=== PATIENT | male | born 1975 | race Caucasian/White ===

== ENCOUNTER 2016-05-23 09:48 | Inpatient (IN) | payer OTHER ==
[~2016-05-23] VITALS: Ht 177.8 cm; Wt 138.1 kg
[2016-05-23] VITALS (20 sets, daily range): BP systolic 124–196; BP diastolic 71–102; PULSE 71–106; RESP 9–23; O2SAT 93–95
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
[2016-05-23] MEDS ORDERED: Heparin 1,000 Unit/mL 10 mL Inj ONE (10:01)
[2016-05-23] MEDS ORDERED: Atropine 1 mg/10 mL (Code) Syringe ONE (10:01)
[2016-05-23] MEDS ORDERED: Phenylephrine/NS-PF 100 mCg/mL 5 mL Syringe IVPUSH ONE (10:01)
[2016-05-23] MEDS ORDERED: Heparin 1,000 Units/500 mL NS Premix IV ONE (10:01)
[2016-05-23] MEDS ORDERED: Heparin 5,000 Units/500 mL NS Premix IV ONE (10:01)
[2016-05-23] MEDS ORDERED: Nitroglycerin 50,000 mcg/250 mL D5W Premix IV ONE ×2 (10:02→10:06)
[2016-05-23] MEDS ORDERED: Nitroglycerin 2% 1 Gm Ointment TOPICAL ONE (10:06)
[2016-05-23] MEDS ORDERED: MeTOProlol 1 mg/mL 5 mL Inj ONE (10:06)
[2016-05-23] MEDS ORDERED: Ondansetron 2 mg/mL 2 mL Inj ONE (10:08)
[2016-05-23 10:21] LABS: BASOPHILS % (AUTO) 0.3 % (0-3); EOSINOPHILS % (AUTO) 2.7 % (0-5); MONOCYTES % (AUTO) 8.4 % (4-12); Mean Corpuscular Hemoglobin 31.7 pg (27.0-35.0); Mean Corpuscular Volume 91.1 fL (81-100); NEUTROPHILS % (AUTO) 55.8 % (40-74); Platelet Count 284 bil/L (150-400)
--- NOTE | 2016-05-23 10:26 | DRSVH ---
PROCEDURE: X-RAY CHEST ONE VIEW, PORTABLE ([id number]) INDICATIONS: chest pain TECHNIQUE: One view of the chest was acquired. COMPARISON: [facility], , CHEST 2 VIEW, 05/12/2015, 13:54. FINDINGS: Surgical changes and devices: None. Lungs and pleura: No pleural effusions or pneumothorax. Lungs are clear. Mediastinum: Mediastinal contours appear normal. Heart size is normal. Bones and chest wall: No suspicious bony lesions. Overlying soft tissues appear unremarkable. IMPRESSION: No acute cardiopulmonary disease. Dictated by: Silvia Muse M.D. on 05/23/2016 at 10:23 Approved by: Silvia Muse M.D. on 05/23/2016 at 10:24
[2016-05-23] MEDS ORDERED: fentaNYL-PF 50 mCg/mL 2 mL Inj ONE (10:30)
[2016-05-23 10:45] LABS: Magnesium 1.7 mg/dL (1.6-2.6)
[2016-05-23] MEDS ORDERED: 0.9% Sodium Chloride 500 ML ONE (10:47)
[2016-05-23 10:48] LABS: TROPONIN T 0.089 ug/L (0.0-0.011)
[2016-05-23] MEDS ORDERED: Labetalol 5 mg/mL 20 mL Inj ONE (11:35)
[2016-05-23] MEDS ORDERED: 0.9% Sodium Chloride 1,000 ML IV ONE (12:30)
[2016-05-23] MEDS ORDERED: Ondansetron 2 mg/mL 2 mL Inj IVPUSH PRN (12:30)
[2016-05-23] MEDS ORDERED: Sodium Chloride LOK Flush 10 mL Syringe IVFLUSH PRN (12:30)
[2016-05-23] MEDS ORDERED: Atropine 1 mg/10 mL (Code) Syringe IVPUSH PRN (12:30)
[2016-05-23] MEDS ORDERED: 0.9% Sodium Chloride 250 ML BOLUS IV PRN (12:30)
--- NOTE | 2016-05-23 13:30 | DRSVH ---
PROCEDURE: X-RAY CHEST ONE VIEW, PORTABLE ([id number]) INDICATIONS: POST CARDIAC PROCEDURE ORDERS TECHNIQUE: One view of the chest was acquired. COMPARISON: [facility], FLAVIO, CHEST 2 VIEW, 05/12/2015, 13:54. [facility], CR, XR SHAUN ST 1VW (PORTABLE), 05/23/2016, 9:53. FINDINGS: Surgical changes and devices: None. Lungs and pleura: No pleural effusions or pneumothorax. Lungs are clear. Mediastinum: Mediastinal contours appear normal. Heart size is normal. Bones and chest wall: No suspicious bony lesions. Overlying soft tissues appear unremarkable. IMPRESSION: No acute cardiopulmonary disease. Dictated by: Silvia Muse M.D. on 05/23/2016 at 13:28 Approved by: Silvia Muse M.D. on 05/23/2016 at 13:28
--- NOTE | 2016-05-23 14:13 | CS94 ---
[address] [address] DIAGNOSTIC CARDIAC CATHETERIZATION PATIENT: LIZZY CRUZ : 1975 MR#: [id number] ADMIT: 05/23/2016 JOB ID: [id number] SERVICE DATE: 05/23/2016 PROCEDURE NOTE--CARDIAC CATHETERIZATION LABORATORY: DATE OF PROCEDURE: Monday, May 23, 2016. AIR BATTLE MANAGER: Seb Urbina MD. PROCEDURES: 1. Coronary angiogram--emergent. 2. Left heart catheterization (LHC)--pressure measurements; and LVG (left ventriculogram). 3. PERCUTANEOUS CORONARY INTERVENTION (PCI)--BERNARDO (drug-eluting stent) of proximal RCA--Xience 4.00 x15 mm. CLINICAL DETAILS: This 41-year-old man presents to the cardiac catheterization laboratory emergently after transferred from [facility] emergency department where he presented with severe retrosternal chest discomfort that was intermittent for the last 16 hours. He has no prior history of heart disease; and coronary risk factors include untreated hypertension and cigarette smoking. He developed severe retrosternal chest discomfort for 6 hours yesterday intermittently. In the emergency department today, there was inferior ST elevation; but on presentation, he has no chest pain and ST changes have mostly cleared, suggestive of a spontaneous reperfusion of the right coronary artery. He is otherwise clinically stable. PROCEDURAL DETAILS: I evaluated him emergently in the emergency department and discussed the findings, impressions and management considerations with him, including the recommendation for emergent catheterization for definitive diagnosis and to guide treatment options including medical therapy, anticipated PCI or bypass surgery if needed. We discussed the procedure including possible risks and complications. We discussed bleeding, infection, and blood clots; as well as injury to nerve, artery, vein, or kidney; and also arrhythmia, drug reaction; or others. We discussed as needed including surgery, pacemaker, transfusion. We discussed more serious complications that are possible including stroke, heart attack, , and emergency surgery including transfer for coronary bypass surgery. After discussion and questions, he signed informed consent to proceed. He had been treated with ASA 324 mg; as well as heparin IV bolus and heparin IV infusion. He had received Plavix 600 mg p.o. at the outside hospital. He was brought to the catheterization laboratory where his prepped sterilely and draped. CORONARY ANGIOGRAM: First arterial access was obtained without difficulty in the right common femoral artery using fluoroscopic localization over the femoral head and modified Seldinger technique to insert a 10 cm, 6-Libyan side-arm sheath. Catheters were advanced and exchanged over a long 0.035 inch J-tipped guidewire. For coronary angiography,,the left coronary artery was engaged with a 6-Libyan JL-4 diagnostic catheter. Then, the right coronary artery was engaged with a 6-Libyan JR-4 guide catheter. LHC: At the end of the procedure, a 6-Libyan pigtail catheter was advanced across the aortic valve into the left ventricle. Pressures were measured. Left ventriculogram was obtained in the 30-degree PATEL projection using 36 cc of contrast injected at 12 cc/second. PCI of proximal RCA: The initial diagnostic angiogram was reviewed. Decision is made to proceed with emergent PCI to revascularize the culprit subtotal 99% focal proximal RCA lesion (KATERYNA-3 flow). Procedural anticoagulation was obtained with IV bolus heparin to achieve therapeutic ACT. Aliquots of NTG IC were used as needed for intervention. The 6-Libyan JR4 catheter already in place was used for the intervention. PREDILATATION: The lesion was crossed without difficulty with a BMW wire--0.014 inches x 190 cm--which was placed distally in the PDA. The lesion was pre-dilated with a Trek balloon--3.0 x 12 mm--inflated twice to maximum 12 atmospheres. The lesion was improved. There was no significant reperfusion arrhythmia. STENT: Next, the lesion was treated with a Xience Alpine BERNARDO--4.0 x 15 mm--deployed at 22 atmospheres. POSTDILATATION: The stent in the very large RCA was then post dilated with a noncompliant Trek NC balloon--4.5 x 12 mm--inflated within the stented segment to 12 atmospheres. Completion angiogram showed an excellent angiographic result with no residual lesion; KATERYNA-3 flow; and no angiographic complication evident. Procedure without difficulty. Patient tolerated procedure well. No complications. A side-arm sheath angiogram shows adequate access in the right common femoral artery for closure device; and arterial hemostasis was obtained without difficulty using a Perclose suture. The patient was transferred chest-pain free and in stable condition from the catheterization laboratory to the CCU for ongoing care. I discussed the procedure findings and ongoing management considerations with the patient; and with multiple family members who arrived. FINDINGS: 1. LMCA: The left main coronary artery is short and intact without angiographic obstructive disease. 2. LAD: The left anterior descending coronary artery is a moderate-size vessel that tapers prior to the apex; and its lesser distribution likely reflects the large distribution of the RCA. The LAD has three, moderate-sized diagonal branches and there is no angiographic obstructive disease. 3. LCX: The left circumflex coronary artery is a large artery with no angiographic obstructive disease. Its distribution includes a very high lateral branch (nearly ramus) and a moderate to large size LPL branch distally. 4. RCA: Dominant. The right coronary artery is a very large (over 4 mm) vessel. Its distribution includes a very large PDA and a very large RPLB, which reached the apex. The apparent culprit lesion of his clinical presentation is a proximal focal subtotal 99% lesion at the takeoff of a small 1st RV branch. There is KATERYNA-3 flow initially. 5. LHC: LVED 19; and no systolic gradient on pullback across the aortic valve. 6. LVG: The left ventricle is slightly dilated with low normal global LV systolic function, including estimated ejection fraction of 50% to 55%. There is inferior hypokinesis and apical akinesis consistent with the distribution of his very large RCA. No mitral regurgitation. CONCLUSIONS: 1. PCI--proximal RCA (Xience Alpine BERNARDO 4.0 x 15 mm; post dilated to 4.5 mm). 2. ACS--acute inferior SD (STEMI); but with clinical spontaneous reperfusion including no chest pain and resolved ECG on presentation. 3. CAD (coronary artery disease)--single-vessel CAD of proximal RCA. RECOMMENDATIONS: 1. ECASA--indefinitely. 2. Plavix--Plan one year if well tolerated, including with ongoing Cardiology followup. I discussed with the patient the critical importance of mandatory dual-antiplatelet therapy; and not to stop Plavix for any reason without immediate Cardiology consultation. 3. Echo. 4. OMT--guideline directed optimal medical therapy for CAD and for CAD risk factors including aspirin, Plavix, statin, beta-nicky, consideration of MIRIAM inhibitor, and control of hypertension. We discussed especially the importance of cigarette smoking cessation. 5. Accelerated hypertension was also a likely contributor to his clinical presentation, with initial blood pressure 205/113.
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
--- NOTE | 2016-05-23 18:20 | NUR ---
Admit Patient was admitted to floor at 1200 from Icu Rn s/p heart cath and stenting. Right groin with small amount of oozing at site and air conditioning unit tester here to look at stated that that was normal oozing. I believe there was a small hematoma forming at site, which was confirmed by Avionics Mechanic for second opinion. Pressure was held at the site and the hematoma lessened. Site is soft now, but there is bruising. Right DP pulse palpable. Dressing was changed per MD and once again a small amount of oozing at site. Patient is off of bedrest now and has stood to void with SBA. Tolerated well. Tele has been SR, 80s. Denies pain. BP up slightly labile, but runs high. Lopressor was ordered and started. Patient was given 80 mg lipitor as ordered. Patient is voiding and taking in fluids well. NS at 100ml/hr to run until 2200.
--- NOTE | 2016-05-23 18:47 | NUR ---
Sats Patient has apnea spells while sleeping and his sats drop to the upper 80s. Patient was informed of this as he will want to follow up on this. 2L 02 was applied to keep sats >92% while sleeping. Lungs sound clear, but decreased in the bases. 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
--- NOTE | 2016-05-23 20:57 | NUR ---
Respiratory/Groin site/status: Pt has noticeable sleep apnea when sleeping with irregular chest movement and spo2 dropping to 89-90% with 3L/M per cannula on. Periods of breaths with chest movement but no air movement heard followed by gasps accompanied with snoring. Right groin site tender to palpation 5cm x 5cm hematoma noted with no changed since [facility] as reported during shift report. Pt has been up out of walking in room and to bathroom. [address] Urbina to transfer to PCU status with tele.
[2016-05-24 00:31] VITALS: BP 156/80; PULSE 78; RESP 18; O2SAT 95
--- NOTE | 2016-05-24 00:47 | NUR ---
transfer of care assumed care of patient - verbal report from chevy pereira. patient denies chest pain. tele SR. right groin site: gauze saturated with old drainage. no additional drainage bruise visible to periphery of dressing. no tenderness with palpation. bounding right foot pulses. sba out of bed, patient voided 800 marcial urine per urinal. reviewed plan of care. no questions at this time.
[2016-05-24 03:51] LABS: Mean Corpuscular Hemoglobin 31.4 pg (27.0-35.0); Mean Corpuscular Volume 93.7 fL (81-100)
[2016-05-24 04:17] VITALS: BP 171/97; PULSE 88; RESP 20; O2SAT 98
[2016-05-24 08:51] VITALS: BP 168/90; PULSE 97; RESP 18; O2SAT 94
[2016-05-24 09:23] VITALS: PULSE 83
--- NOTE | 2016-05-24 11:34 | DRSVH ---
[facility] [address] [place] [place] [address] Echocardiogram Report Name: LIZZY RCUZ Study Date: 05/24/2016 Height: 70 in Hospital Exam Location: [facility] Weight: 30 4 lb Gender: Other BSA: 2.5 m2 : 1975 Age: 41 yrs BP: 171/97 mmHg Reason For Study: STEMI Ordering Physician: Seb Urbina Performed By: Darlene Knapp Referring Physician: Dr. Lv Soria Interpretation Summary 1) Mild concentric left ventricular hypertrophy with normal size and normal systolic function (EF 55-60%). 2) Distal inferolateral wall hypokinesis. 3) Normal right ventricular size with low normal function. 4) No significant valvular abnormalities. 5) Hypertension present during the study (BP 171/97). 6) No prior Echo available for comparison. Procedure: A two-dimensional transthoracic echocardiogram with color flow and Doppler was performed. The study quality was technically adequate. A contrast injection of Definity was performed to improve assessment of LV function. There is no prior echocardiogram noted for this patient. No complications noted with Definity. The patient was in normal sinus rhythm during the exam. Left Ventricle: The left ventricle is mildly dilated. There is mild concentric left ventricular hypertrophy. The ejection fraction is estimated to be 55-60%. Left ventricular systolic function is normal. Distal inferolateral wall hypokinesis. Assessment of diastolic parameters indicates a relaxation abnormality of the left ventricle, consistent with normal filling pressures. Right Ventricle: The right ventricle is normal size. Right ventricular systolic function is at the lower limits of normal. Atria: Both atria are normal in size. There is no Doppler evidence for an interatrial shunt. Mitral Valve: The mitral valve is normal in structure and function. There is trace mitral regurgitation. Aortic Valve: The aortic valve is normal in structure and function. There is no aortic valve stenosis. No aortic regurgitation is present. Tricuspid Valve: The tricuspid valve is not well visualized, but is grossly normal. Pulmonary artery pressures cannot be estimated because of the lack of a measurable TR jet velocity. Pulmonic Valve: The pulmonic valve is not well seen, but is grossly normal. Great Vessels: The aortic root is normal size. The ascending aorta is at the upper limits of normal in size. The aortic arch is normal in size. The IVC is of normal diameter and collapses greater than 50% with a sniff. This suggests a low right atrial pressure of 3 mm Hg. Pericardium/ Pleura There is no pericardial effusion. MMode/2D Measurements & Calculations LVIDd: 6.0 cm RA long axis LVOT diam: 2.4 cm LVIDs: 4.0 cm LA A2 area: 23.3 cm AoV Opening FS: 33.6 % LA A4 area: 21.5 cm RA area EPSS: 0.91 cm LA length (vol) Ao root diam IVSd: 1.2 cm : 23.3 cm LVPWd: 1.1 cm LA vol: 65.7 ml RA vol Aortic Jxn: 3.3 cm LA vol index : 74.4 ml asc Aorta Diam RA : 29.8 mm2 Ao Arch Diam (Prox IVC diam: 1.6 cm Trans): 2.9 cm LV smiley. diameter/BSA LV sys. diameter/BSA (cm/m^2): 2.4 (cm/m^2): 1.6 Doppler Measurements & Calculations Ao V2 max MV E max vick MV E/A: 0.83 PA V2 max : 181.5 cm/sec : 52.5 cm/sec Med Peak E' Vick : 108.6 cm/sec Ao max PG MV A max vick PA mean PG : 13.2 mmHg : 63.6 cm/sec E/E' med: 8.0 Ao mean PG MV P1/2t: 49.4 msec Pulm A Revs Dur PA Accel Time : 0.09 sec LVOT Max Vick MV A dur: 0.10 sec : 124.0 cm/sec RODGER(I,D): 3.6 cm sev ratio MV dec time MV P1/2t max vick Ao V2 mean LV V1 max PG : 0.17 sec : 120.9 cm/sec MVA(P1/2t): 4.5 cm2 Ao V2 VTI: 29.5 cm LV V1 VTI RODGER(V,D): 3.0 cm2 : 23.7 cm PA V2 mean RODGER indexed to BSA Pulm A Revs Dur - MV A : 62.1 cm/sec (cm^2/m^2): 1.4 Dur: 0.04 msec Reading Physician:[id number] AM
[2016-05-24 12:19] VITALS: BP 132/82; PULSE 75; RESP 17; O2SAT 92
--- NOTE | 2016-05-24 16:07 | NUR ---
Social Work Note: Screen Note Data& Assessment: EMR reviewed. Nacho Head is a 41 year old male admitted on 05/23/2016 for STEMI. Pt has [employer] insurance coverage and sees Lv Soria MD for primary care. Pt lives in [place] and is independent at baseline. Pt is ambulating the halls independently with family. SW met with pt and pt family at bedside to check in and assess for any unmet needs. Pt provided with DPOA/Advance Directive paperwork to review and complete when possible. Pt denies any other needs at this time. SW to continue to follow. Plan: Anticipated discharge home via POV when medically ready. Pt denies any other needs at this time. SW to continue to follow. YVROSE Bowles
--- NOTE | 2016-05-24 17:22 | PCM.DIMED ---
Discharge Instructions Date of Service May 24, 2016 Dates of Hospitalization May 23, 2016 at 12:28 Discharge Diagnosis Discharge Diagnosis ACS CAD HTN Diet Heart Healthy Activity Limited until seen by PCP Call your provider Chest pain Patient Instructions Follow-up with PCP in: 1 week [facility] Follow-up in: 1 week Seb Urbina MD May 24, 2016 17:22
[2016-05-24] MEDS ORDERED: ASPI81TA3 PO (17:27)
[2016-05-24] MEDS ORDERED: NICO1PAT5 TOPICAL (17:27)
[2016-05-24] MEDS ORDERED: CLOP75TA28 PO (17:27)
[2016-05-24] MEDS ORDERED: NITR0.4T SL (17:27)
[2016-05-24] MEDS ORDERED: ATOR40TA69 PO (17:27)
[2016-05-24] MEDS ORDERED: LISI-571 PO (17:27)
[2016-05-24] MEDS ORDERED: METO25TA6 PO (17:27)
--- NOTE | 2016-05-24 18:08 | DRSVH ---
PROCEDURE: US DUPLEX DOPPLER UNILATERAL LEG ARTERIES, RIGHT INDICATIONS: R GROIN SITE R/O PSEUDOANEURISM TECHNIQUE: Color and pulse Doppler interrogation was performed of the right lower extremity arterial system, wit h image documentation. COMPARISON: None. FINDINGS: No sonographic evidence for pseudoaneurysm. There is a 3.7 x 1.7 x 3.1 cm hypo-echoic flui d collection within the right inguinal region. There is no internal vascularity. IMPRESSION: 1. No findings to suggest pseudoaneurysm. 2. Probable small retroperitoneal hematoma. Approved by: Kina Barrientos M.D. on 05/24/2016 at 18:07
[2016-05-24 18:25] VITALS: BP 141/107; PULSE 97; RESP 19; O2SAT 94
--- NOTE | 2016-05-24 18:44 | NUR ---
Discharge Pt. discharged to home in stable condition at 1840. Walking w/ steady gait. IVs and tele dc'd prior to discharge. All belongings, scripts and instructions with pt. Pt. educated on new medications. No questions or concerns at this time.
--- NOTE | 2016-05-24 18:55 | DIS ---
[address] [address] DISCHARGE SUMMARY PATIENT: LIZZY CRUZ : 1975 MR#: [id number] ADMIT: 05/23/2016 JOB ID: [id number] DIS: DISCHARGE SUMMARY--FOLLOW-UP INPATIENT CARDIOLOGY VISIT: DATE OF ADMISSION: Monday, May 23, 2016. DATE OF DISCHARGE: Tuesday, May 24, 2016. HOSPITAL COURSE AND DISCHARGE SUMMARY: This 41-year-old man presented to the Emergency Department(ED) by EMS 36 hours ago after the onset of severe retrosternal chest discomfort that had been present for 12 hours; but intermittent. On initial presentation to an outside ED he had chest discomfort and the EKG showed acute inferior ST elevation NH with confirmatory reciprocal ST depression. However, on transfer to this hospital and at the time of presentation here, he had apparent clinical spontaneous reperfusion. He was chest pain free and ECG changes had mostly resolved. He was also noted to have hypertensive emergency with systolic blood pressure above 200 on presentation. He was taken emergently to the Cardiac Catheterization Laboratory where he was found to have single-vessel coronary disease with a subtotal 99% focal proximal RCA lesion--initially with KATERYNA-3 flow. He was treated with percutaneous coronary intervention with a Xience Alpine stent--4.0 x 15 mm--(postdilated to 4.5 mm). Thereafter, he was clinically stable without recurrent chest pain. His ECG changes resolved nearly completely; and subsequent ECG is not outside ahsan limits. There are no diagnostic Q waves. Total CK was not above normal limits. Echocardiogram showed some inferior hypokinesis consistent with his acute RCA lesion. In the hospital, he recovered well. There was some ecchymosis at the site of cath access at the right groin. A Doppler ultrasound study showed a 3 cm hematoma but no pseudoaneurysm. He ambulated over a mile around the the [place]; and had no symptoms; and felt well; and strongly wanted to be discharged home. Prior to discharge, I talked with him extensively on several occasions to discuss the findings, impressions, and management considerations including his underlying coronary disease. We discussed medications to include aspirin; as well as the critical importance of mandatory Plavix planned for one year if well tolerated; and not to stop for any reason without immediate Cardiology consultation. We discussed other medicines to include metoprolol, lisinopril, statin. We discussed the importance of controlling his severe hypertension which persisted intermittently. We also discussed his obesity (300 pounds) and the evident sleep apnea that was witnessed at night including apnea, O2 saturations in the 80s, and snoring and snorting. We discussed post hospitalization care including to call for PCP appointment on discharge, to be seen within 3-7 days; and to be seen in Cardiology Clinic within 7-10 days. We discussed activity prescription including to return to normal activities with moderate, progressive, step-koroma, symptom limited activities. I signed a form from his work indicating return to work would be reassessed at the time of his follow-up office visit. I anticipate it is likely he will return to normal activities. We discussed and answered questions for him and his Family. DISPOSITION: Home. FOLLOW-UP: PCP 4-7 days. Cardiology Clinic: 7-10 days. Consider Cardiac Rehab Program, discussed. Smoking Cessation, discussed. MEDICATIONS: 1. ECASA 81 mg p.o. daily. 2. Plavix 75 mg p.o. daily--plan one year with ongoing Cardiology follow-up. 3. Metoprolol 25 mg p.o. b.i.d.--anticipate up-titration for blood pressure control. 4. Lisinopril 5 mg p.o. daily--anticipate up-titration for control of hypertension. 5. Lipitor 80 mg p.o. daily--patient knows to report if myalgias occur. 6. Nicotine 14 mg Patch. These are all new medicines for him. MTDD
== END 2016-05-24 18:41 | disposition home or self-care (01) | DRG 247 ==
LOC: SED 09:48 → EDBD 09:48 → SPI 10:07 → CCU 12:28 → PCC 20:54
PROVIDERS: ADMIT Internal Medicine Cardiovascular Disease; ATTEND Internal Medicine Cardiovascular Disease
PROC: 027034Z Dilation of Coronary Artery, One Artery with Drug-eluting Intraluminal Device, Percutaneous Approach (ICD-10-PCS; principal; 2016-05-23)
PROC: 4A023N7 Measurement of Cardiac Sampling and Pressure, Left Heart, Percutaneous Approach (ICD-10-PCS; 2016-05-23)
PROC: B2111ZZ Fluoroscopy of Multiple Coronary Arteries using Low Osmolar Contrast (ICD-10-PCS; 2016-05-23)
PROC: B2151ZZ Fluoroscopy of Left Heart using Low Osmolar Contrast (ICD-10-PCS; 2016-05-23)
DX: I21.19 ST elevation (STEMI) myocardial infarction involving other coronary artery of inferior wall (principal); I16.1 Hypertensive emergency; Z68.41 Body mass index [BMI] 40.0-44.9, adult; I10 Essential (primary) hypertension; F17.210 Nicotine dependence, cigarettes, uncomplicated; E66.01 Morbid (severe) obesity due to excess calories; I25.10 Atherosclerotic heart disease of native coronary artery without angina pectoris